=== PATIENT | female | born 1960 | race Caucasian/White ===

== ENCOUNTER 2024-03-25 06:36 | Inpatient (IN) ==
[2024-03-25 07:38] LABS: ABS Basophils 0.1 10^3/uL (0.0-0.1); ABS Lymphocytes 1.2 10^3/uL (1.0-4.8); ABS Monocytes 1.3 10^3/uL (0.0-0.9); ABS Neutrophils 17.7 10^3/uL (1.5-7.6); ABS Nucleated RBC 0.01 10^3/ul; Hematocrit 40.3 % (35-45); Hemoglobin 13.2 g/dL (11.5-14.3); Mean Corpuscular Hemoglobin 26.8 pg (27-33); Mean Corpuscular Hgb Conc 32.8 g/dL (31-36); Mean Corpuscular Volume 81.8 fL (80-97); Mean Platelet Volume 6.9 fL (7.5-11.2); Platelet Count 653 10^3/uL (150-450); Red Blood Count 4.93 10^6/uL (3.63-4.92); Red Cell Distribution Width 15.7 % (12-17); White Blood Count 20.3 10^3/uL (3.8-11.8)
[2024-03-25 07:54] LABS: Activated Partial Thrombo Time 25.9 seconds (26.0-38.0); INR 1.21 (0.85-1.14)
[2024-03-25] MEDS: NORMOSOL R PH IV ONE (08:05)
[2024-03-25] MEDS: Ondansetron 4 mg VIAL 2 MG/ML 2 ml VIAL IV ONE (08:05)
[2024-03-25 08:23] LABS: Albumin 3.2 g/dL (3.2-5.2); Albumin/Globulin Ratio 0.9 (1-3); C Reactive Protein 320.84 mg/L (<8.01); Creatinine, Serum 2.75 mg/dL (0.51-0.95); Globulin 3.4 g/dL (2-4); Potassium 3.8 mmol/L (3.5-5.0); Total Bilirubin 0.7 mg/dL (0.2-1.0); Total Protein 6.6 g/dL (6.4-8.9); eGFR CKD-EPI 18.7 (>60)
[2024-03-25 09:29] LABS: High Sensitivity Troponin 1 Hr 29 pg/mL (<15)
[2024-03-25] MEDS: Piperacillin/Tazobac 3.375 BAG 3.375 GM/100 ML BAG IV ONE (09:37)
[2024-03-25] MEDS: Morphine 4 MG/ML VIAL (1 ml) IV ONE (10:42)
[2024-03-25] MEDS: Ondansetron 4 mg VIAL 2 MG/ML 2 ml VIAL IV PRN (13:22)
[2024-03-25] MEDS ORDERED: Zosyn per Pharmacy NOTE FOLLOW UP SCH (14:00)
[2024-03-25] MEDS ORDERED: Morphine 2 MG/ML SYRINGE IV PRN ×2 (14:09)
[2024-03-25] MEDS: Acetaminophen IV 1 GM/100ML 1,000 MG/100 ML BAG IV PRN (14:20)
[2024-03-25] MEDS: ZOSYN 3.375 GM Q8H per EXTENDED INFUSION IV SCH (14:21)
[2024-03-25] MEDS: NORMOSOL-R pH 7.4 1000 mL BAG 1,000 ML IV SCH (14:31)
[2024-03-25] MEDS: Morphine 2 MG/ML SYRINGE IV ONE (14:32)
[2024-03-25] MEDS ORDERED: PEG 3000 GI LAVAGE 1 GALLON PO ONE (16:43)
[2024-03-25] MEDS: Lactated Ringers 1000 ml BAG 1,000 ML IV ONE (16:48)
[2024-03-25] MEDS: Norepinephrine 4 MG/250mL D5W 4,000 MCG/250 ML BAG IV SCH ×3 (20:04→23:28)
[2024-03-25 20:10] LABS: ABS Lymphocytes 0.7 10^3/uL (1.0-4.8); ABS Monocytes 0.3 10^3/uL (0.0-0.9); ABS Nucleated RBC 0.01 10^3/ul; Eosinophil % 0.2 %; Lymphocyte % 14.1 %; Mean Corpuscular Hemoglobin 26.8 pg (27-33); Mean Corpuscular Hgb Conc 32.4 g/dL (31-36); Mean Corpuscular Volume 82.8 fL (80-97); Mean Platelet Volume 6.8 fL (7.5-11.2); Nucleated Red Blood Cells % 0.2 %/100WBC (0.0-0.8); Platelet Count 515 10^3/uL (150-450); Red Blood Count 4.84 10^6/uL (3.63-4.92); Red Cell Distribution Width 15.7 % (12-17); White Blood Count 5.1 10^3/uL (3.8-11.8)
[2024-03-25 20:34] LABS: Albumin 2.4 g/dL (3.2-5.2); Calcium 9.5 mg/dL (8.6-10.3); Creatinine, Serum 2.79 mg/dL (0.51-0.95); Globulin 2.4 g/dL (2-4); Magnesium 2.8 mg/dL (1.9-2.7); Potassium 4.1 mmol/L (3.5-5.0); Total Bilirubin 0.9 mg/dL (0.2-1.0); Total Protein 4.8 g/dL (6.4-8.9); eGFR CKD-EPI 18.4 (>60)
[2024-03-25] MEDS: PHENYLEPHRINE DRIP IVPREMIX 50 MG/250 ML BAG IV SCH (21:08)
[2024-03-25] MEDS: Morphine 2 MG/ML SYRINGE IV PRN (21:27)
[2024-03-25] MEDS ORDERED: Heparin 5000 UNITS/ML 1 mL VIAL SUBCUT SCH (22:00)
[2024-03-25] MEDS ORDERED: Phenylephrine 40 mcg/mL 10mL (400mcg) SYRINGE ONE (22:24)
[2024-03-25] MEDS ORDERED: EPINEPHrine SYR 0.1MG/ML 10 ml SYRINGE IV ONE (22:24)
[2024-03-25] MEDS ORDERED: ZOSYN 3.375 GM Q8H per EXTENDED INFUSION IV SCH (23:00)
[2024-03-25] MEDS ORDERED: VASOPRESSIN IVPREMIX BTL 40 UNIT/100 ML BTL IV ONE (23:01)
[2024-03-25] MEDS: VASOPRESSIN IVPREMIX BTL 40 UNIT/100 ML BTL IV SCH (23:05)
[2024-03-26] MEDS: Morphine 2 MG/ML SYRINGE IV PRN (00:41)
[2024-03-26 01:11] VITALS: BP 67/36
[2024-03-26] MEDS ORDERED: Morphine 2 MG/ML SYRINGE IV PRN (01:40)
[2024-03-26] MEDS: Morphine 4 MG/ML VIAL (1 ml) IV PRN (01:45)
== END 2024-03-26 02:00 | disposition expired | DRG 720 ==
LOC: ED 06:36 → EDHOLD 13:09 → MED 14:39 → ICU 19:44
PROVIDERS: ADMIT Internal Medicine; ATTEND Internal Medicine